=== PATIENT | female | born 1975 | race Caucasian/White ===

== ENCOUNTER → 2020-05-08 15:59 | Outpatient (CLI) | payer OTHER, SELFPAY ==
[2020-05-08 17:39] LABS: Absolute Lymphocyte Count 2.33 X10^3/uL (0.83-4.51); Absolute Neutrophil Count 4.6 X10^3/uL (2.0-7.7); Basophil# 0.04 X10^3/uL; Basophil% 0.5 % (0-1); Eosinophil# 0.08 X10^3/uL; Eosinophils% 1.1 % (0-5); Hemoglobin 12.8 g/dL (12.0-15.0); Lymphocyte # 2.33 X10^3/ul (4.0); Lymphocyte % 30.7 % (19-41); Mean Corp Hgb Conc 32.8 g/dL (32-36); Mean Corpuscular Hgb 30.3 pg (27.0-32.0); Mean Corpuscular Volume 92.2 fL (81-99); Mean Platelet Vol. 9.7 fl (6.2-12.0); Monocyte# 0.56 X10^3/uL; Monocyte% 7.4 % (0-10); NRBC Flagged by Analyzer 0 % (0-5); Neutrophil # 4.56 X10^3/uL (2.7-7.7); Platelet Count 276 K/mm3 (150-450); RBC Distribution Width CV 14.3 % (11.6-14.6); Red Blood Count 4.23 M/mm3 (4.2-5.4); White Blood Count 7.6 K/mm3 (4.4-11.0)
[2020-05-08 18:12] LABS: ALB/GLOB Ratio 1.1 RATIO (0.9-2.4); AST(SGOT) 15 U/L (15-37); Alanine Aminotransfer ALT/SGPT 28 U/L (13-56); Albumin, Serum 4.1 g/dL (3.2-5.0); Alkaline Phosphatase 58 U/L (45-117); Anion Gap 5 (5-15); BUN 11 mg/dL (7-18); BUN/Creat Ratio 11.6 RATIO (10-20); Calcium,Total 8.8 mg/dL (8.5-10.1); Chloride 106 mmol/L (98-107); Creatinine, Serum 0.95 mg/dL (0.55-1.02); EST Glomerular Filtration Rate 67 mL/min (>60); Est Glom Filt Rate - Afr Amer 81 mL/min (>60); Globulin 3.9 g/dL (2.2-4.2); Glucose 83 mg/dL (74-106); Sodium Level 137 mmol/L (136-145); T4 Free Direct 0.99 ng/dL (0.76-1.46); Thyroid Stim Hormone (TSH) 1.51 uIU/mL (0.358-3.74)
== END ==
PROVIDERS: PCP Family Medicine; Referring Provider Family Medicine; Visit Provider Family Medicine
DX: L65.9 Nonscarring hair loss, unspecified (principal)
CPT/HCPCS: 36415; 80053; 84439; 84443; 85025

== ENCOUNTER → 2020-05-23 10:11 | Outpatient (CLI) | payer SELFPAY ==
--- NOTE | 2020-05-23 10:40 | BI_ITS ---
MAMMOGRAPHY - BILATERAL SCREENING REASON FOR EXAM: Female, 45 years old. Routine annual screening examination. PERTINENT HISTORY: Non-contributory. TECHNIQUE: Digital bilateral breast zahra (3D mammographic acquisition) in the CC and MLO projections. 2-D mediolateral oblique (MLO) and craniocaudad (CC) views of both breasts were obtained. CAD: Full Field Digital Mammography with Computer Added Detection was performed. COMPARISON: None. Baseline examination. FINDINGS: Breast Composition: The breasts are heterogeneously dense, which may obscure small masses. There are no dominant masses or suspicious calcifications. No other significant abnormalities are identified. BI/SCRN MAMM (CAD)W/ZAHRA BILAT IMPRESSION: Negative screening mammogram. Yearly followup mammogram recommended. (A) ASSESSMENT CATEGORY: BIRADS Category 1: Negative. A letter regarding these results will be sent to the patient by the facility within 30 days. Approximately 10% of breast cancers are not detected by mammography. A normal mammogram should not delay biopsy of a clinically suspicious abnormality. [id number] Electronically Signed: Crow Izaguirre MD at 12:29 EST , Service support ,
== END ==
PROVIDERS: PCP Family Medicine; Referring Provider Family Medicine; Visit Provider Family Medicine
DX: Z12.31 Encounter for screening mammogram for malignant neoplasm of breast (principal)
CPT/HCPCS: 77063; 77067

== ENCOUNTER → 2020-06-06 | Outpatient (CLI) | payer OTHER, SELFPAY | END | disposition home or self-care (01) | PROVIDERS: PCP Family Medicine; Referring Provider Family Medicine; Visit Provider Family Medicine | DX: R69 Illness, unspecified (principal) ==

== ENCOUNTER 2021-06-29 10:40 | Outpatient (CLI) | payer SELFPAY, OTHER ==
--- NOTE | 2021-06-29 10:42 | BI_ITS ---
MAMMOGRAPHY - BILATERAL SCREENING REASON FOR EXAM: Female, 46 years old. Routine annual screening examination. PERTINENT HISTORY: Non-contributory. TECHNIQUE: Digital bilateral breast zahra (3D mammographic acquisition) in the CC and MLO projections. 2-D mediolateral oblique (MLO) and craniocaudad (CC) views of both breasts were obtained. CAD: Full Field Digital Mammography with Computer Added Detection was performed. COMPARISON: Comparison is made with prior study dated 05/23/2020. FINDINGS: Breast Composition: The breasts are heterogeneously dense, which may obscure small masses. There are no dominant masses or suspicious calcifications. No other significant abnormalities are identified. There has been no significant change since the prior study. BI/SCRN MAMM (CAD)W/ZAHRA BILAT IMPRESSION: Stable bilateral screening mammogram. Yearly follow-up mammogram recommended. (A) ASSESSMENT CATEGORY: BIRADS Category 1: Negative. A letter regarding these results will be sent to the patient by the facility within 30 days. Approximately 10% of breast cancers are not detected by mammography. A normal mammogram should not delay biopsy of a clinically suspicious abnormality. [id number] Electronically Signed: Crow Izaguirre MD at 11:56 EDT ,
== END 2021-06-29 23:59 | disposition home or self-care (01) ==
PROVIDERS: PCP Family Medicine; Visit Provider Family Medicine
DX: Z12.31 Encounter for screening mammogram for malignant neoplasm of breast (principal)
CPT/HCPCS: 77063; 77067

== ENCOUNTER → 2022-08-02 | Outpatient (CLI) | payer SELFPAY, OTHER ==
--- NOTE | 2022-08-02 09:21 | BI_ITS ---
MAMMOGRAPHY - BILATERAL SCREENING REASON FOR EXAM: Female, 47 years old. Routine annual screening examination. PERTINENT HISTORY: Non-contributory. TECHNIQUE: Digital bilateral breast zahra (3D mammographic acquisition) in the CC and MLO projections. 2-D mediolateral oblique (MLO) and craniocaudad (CC) views of both breasts were obtained. CAD: Full Field Digital Mammography with Computer Added Detection was performed. COMPARISON: Comparison is made with prior study dated June 29, 2021 and May 23, 2020. FINDINGS: Breast Composition: There are scattered areas of fibroglandular density. There are no dominant masses or suspicious calcifications. No other significant abnormalities are identified. There has been no significant change since the prior study. BI/SCRN MAMM (CAD)W/ZAHRA BILAT IMPRESSION: Stable bilateral screening mammogram. Yearly follow-up mammogram recommended. (A) ASSESSMENT CATEGORY: BIRADS Category 1: Negative. A letter regarding these results will be sent to the patient by the facility within 30 days. Approximately 10% of breast cancers are not detected by mammography. A normal mammogram should not delay biopsy of a clinically suspicious abnormality. [id number] Electronically Signed: Crow Izaguirre MD at 10:46 EDT ,
== END | disposition home or self-care (01) ==
PROVIDERS: PCP Family Medicine; Referring Provider Family Medicine; Visit Provider Family Medicine
DX: Z12.31 Encounter for screening mammogram for malignant neoplasm of breast (principal)
CPT/HCPCS: 77063; 77067

== ENCOUNTER → 2023-07-06 | Outpatient (CLI) | payer OTHER, SELFPAY ==
[2023-07-06 12:13] LABS: Absolute Lymphocyte Count 1.97 X10^3/uL (0.83-4.51); Absolute Neutrophil Count 3.3 X10^3/uL (2.0-7.7); Basophil# 0.03 X10^3/uL; Basophil% 0.5 % (0-1); Eosinophil# 0.08 X10^3/uL; Eosinophils% 1.4 % (0-5); Hematocrit 38.9 % (37-47); Hemoglobin 12.6 g/dL (12.0-15.0); Lymphocyte # 1.97 X10^3/ul (0.83-4.51); Lymphocyte % 33.8 % (19-41); Mean Corp Hgb Conc 32.4 g/dL (32-36); Mean Corpuscular Hgb 29.4 pg (27.0-32.0); Mean Corpuscular Volume 90.9 fL (81-99); Mean Platelet Vol. 10.5 fl (6.2-12.0); Monocyte# 0.46 X10^3/uL; Monocyte% 7.9 % (0-10); NRBC Flagged by Analyzer 0 % (0-5); Neutrophil # 3.27 X10^3/uL (2.7-7.7); Neutrophil % 56.2 % (47-70); Platelet Count 277 K/mm3 (150-450); RBC Distribution Width CV 14.7 % (11.6-14.6); RBC Distribution Width SD 49.2 fl (35.1-43.9); Red Blood Count 4.28 M/mm3 (4.2-5.4); White Blood Count 5.8 K/mm3 (4.4-11.0)
[2023-07-06 12:14] LABS: Color, Urine Yellow (Yellow); Glucose, Dipstick Normal (Normal); Ketone-Dipstick Negative (Negative); Leukocyte Esterase-Dipstick 500 /ul (Negative); Nitrite-Dipstick Negative (Negative); Occult Blood-Urine Negative /ul (Negative); Protein-Dipstick Negative (Negative); Specific Gravity, Urine 1.015 (1.002-1.030); Urine Bilirubin Dipstick Negative (Negative); Urine Clarity Clear (Clear); Urine Urobilinogen Normal (Normal)
[2023-07-06 13:02] LABS: AST(SGOT) 14 U/L (15-37); Alanine Aminotransfer ALT/SGPT 17 U/L (13-56); Albumin, Serum 3.7 g/dL (3.2-5.0); Alkaline Phosphatase 61 U/L (45-117); Anion Gap 5 (5-15); BUN 11 mg/dL (7-18); BUN/Creat Ratio 11.8 RATIO (10-20); Calcium,Total 8.8 mg/dL (8.5-10.1); Chloride 107 mmol/L (98-107); Cholesterol 212 mg/dL (200); Creatinine, Serum 0.93 mg/dL (0.55-1.02); EST Glomerular Filtration Rate 68 mL/min (>60); Est Glom Filt Rate - Afr Amer 82 mL/min (>60); Globulin 3.7 g/dL (2.2-4.2); Glucose 88 mg/dL (74-106); High Density Lipoprotein 78 mg/dL; Potassium 4.3 mmol/L (3.5-5.1); Protein, Total 7.4 g/dL (6.4-8.2); Sodium Level 140 mmol/L (136-145); Thyroid Stim Hormone (TSH) 1.09 uIU/mL (0.358-3.74); Triglycerides 82 mg/dL; Very Low Density Lipoprotein 16 mg/dL (5-40)
== END | disposition home or self-care (01) ==
PROVIDERS: PCP Family Medicine; Referring Provider Family Medicine; Visit Provider Family Medicine
DX: Z00.00 Encounter for general adult medical examination without abnormal findings (principal)
CPT/HCPCS: 80053; 80061; 81002; 84443; 85025

== ENCOUNTER 2023-07-29 08:18 | Day surgery (SDC) | payer SELFPAY, OTHER ==
[2023-07-29] VITALS (8 sets, daily range): BP systolic 97–111; BP diastolic 65–70; PULSE 56–67; RESP 16; TEMP 36.5–36.7; O2SAT 99–100; BMI 29.0
[2023-07-29 08:45] LABS: Internal QC Validated? YES +Cl - CLEAR BKGD; Pregnancy, Urine Negative Negative
[2023-07-29] MEDS: Lactated Ringers 1,000 ML 15 ML IV (08:57)
--- NOTE | 2023-07-29 09:44 | HP.PCM_ITS ---
HPI - General HPI Narrative KARINA HOLT, is a 48 F who presents for screening colonoscopy. The patient has never had a colonoscopy in the past. She does report a history of polyps in her mother. She has no blood in the stool or abdominal pain. [facility] Medical History (Updated 07/26/23 @ 12:48 by Forest Brooks) Wears glasses Home Medications ascorbate calcium (vitamin C) 500 mg tablet 500 mg PO DAILY 07/20/23 [History Last Taken Unknown] calcium carbonate (Calcium 600) 600 mg PO DAILY 07/20/23 [History Last Taken Unknown] melatonin 3 mg tablet,extended release 3 mg PO QHS 07/20/23 [History Last Taken Unknown] omega-3 fatty acids-fish oil 360 mg-1,200 mg capsule (Fish Oil) 1 cap PO DAILY 07/20/23 [History Last Taken 07/25/23] psyllium husk 0.4 gram capsule (Daily Fiber) 0.4 g PO DAILY 07/20/23 [History Last Taken 07/24/23] turmeric (bulk) 95 % powder (Curcumin) 1 ea miscellaneous BID 07/26/23 [History Last Taken Unknown] Allergy/AdvReac Type Severity Reaction Status Date / Time No Known Allergies Allergy Verified 07/26/23 12:41 Family History (Updated 07/20/23 @ 09:06 by Kristal Moralez) Mother Adenomatous colon polyp Hypertension History of partial colectomy Surgical History Hx of section Hx of tonsillectomy Hx of wisdom tooth extraction Social History (Updated 07/20/23 @ 09:08 by Kristal Moralez) household members: spouse 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 Smoking Status: Never smoker details: Rare wine substance use type: does not use michael/spiritism: [facility] Past Medical/Surgical History Planned Operation Planned Operative Procedure/s: COLONOSCOPY Previous Hospitalizations/Surgeries HX Hospitalizations: No Any Problems With Anesthesia: No You/Your Family Experience Fever (Hyperthermia) With Anes: No Cholinesterase deficiency: No Cardiovascular Hx Hypertension: No Respiratory Hx Sleep Apnea: No Hx Respiratory Tract Infection/Cold (presently): No Do You Snore Loudly (louder than talking or can be heard): No Do You Often Feel Tired/ Fatigued/ Sleepy Dring Daytime?: No Has Anyone Observed You Stop Breathing During Sleep?: No Result (for STOP score): Negative Smoking Status: Never smoker Neurological Does patient have nerve stimulator: No Miscellaneous Recent Exposure to Contagious Disease: No Allergies No Known Allergies Allergy (Verified 07/26/23 12:41) Discharge After D/C, Where Do you Plan to Go: Return Home Vital Signs Vital Signs Vital Signs: 07/29/23 08:40 07/29/23 08:40 Temperature 98.0 F Temperature Source Temporal Pulse Rate 62 Respiratory Rate 16 Respiratory Pattern Normal Blood Pressure 111/69 Blood Pressure Mean 83 Blood Pressure Source Monitor Blood Pressure Position Semi-Fowlers Blood Pressure Location Left Arm Pulse Ox 100 Oxygen Delivery Method Room Air Weight Weight: 156 lb 8.451 oz Body Mass Index (BMI) 29.0 Physical Exam Const alert and oriented x3 HEENT normocephalic Eyes PERRL Resp normal respiratory effort and normal air movement Cardio regular rate and regular rhythm GI soft to palpation, non-tender and non-distended Extremity normal to inspection Assessment & Plan Assessment/Plan (1) Encounter for screening for malignant neoplasm of colon: PLAN: I explained endoscopy in detail to the patient. I explained the risks including but not limited to stroke or heart attack with anesthesia, perforation of the GI tract, bleeding, infection. I explained that any of these could necessitate further emergency surgery. The patient understands and all questions were answered sufficiently. The patient wishes to proceed with procedure. Foreign Reardon MD Pager: [facility] [address] [place] [address], [address] [place] [address] Office: Surgery Risks - Colonoscopy Risks Include but are not Limited To: Risks include but are not limited to: Bleeding, perforation requiring further surgery, inability to complete colonoscopy requiring barium enema.
--- NOTE | 2023-07-29 10:16 | OP.CCLET_ITS ---
07/29/2023 Elías Cabrera [address] [place] [address] Re : Colonoscopy procedure for Neelam Bensonber Dear Dr. Cabrera This procedure was performed on Saturday, July 29, 2023. My impressions and recommendations are as follows: Impressions : - The entire examined colon is normal on direct and retroflexion views. - No specimens collected. Recommendations : - Discharge patient to home. - Resume previous diet. - Continue present medications. - Repeat colonoscopy in 10 years for screening purposes. My findings are described in the full procedure note, which is enclosed. If I can be of further assistance, please feel free to contact me at Doctor phone number(s): , Work: . Sincerely, Foreign Reardon MD 07/29/2023 10:16:04 AM This report has been signed electronically.
--- NOTE | 2023-07-29 10:16 | OP.COLON_ITS ---
Patient Name: Neelam Masters Procedure Date: 07/29/2023 9:52 AM Date of : 1975 Age: 48 Procedure: Colonoscopy Indications: Screening for colorectal malignant neoplasm Providers: Foreign Reardon MD Referring MD: Elías Cabrera Medicines: Propofol per Anesthesia Patient Profile: This is a 48 year old female. Refer to note in patient chart for documentation of history and physical. Last Colonoscopy: none. The patient's first colonoscopy is today. Complications: No immediate complications. Procedure: Pre-Anesthesia Assessment: - Prior to the procedure, a History and Physical was performed, and patient medications and allergies were reviewed. The patient's tolerance of previous anesthesia was also reviewed. The risks and benefits of the procedure and the sedation options and risks were discussed with the patient. All questions were answered, and informed consent was obtained. Prior Anticoagulants: The patient has taken no anticoagulant or antiplatelet agents. After reviewing the risks and benefits, the patient was deemed in satisfactory condition to undergo the procedure. After I obtained informed consent, the scope was passed under direct vision. Throughout the procedure, the patient's blood pressure, pulse, and oxygen saturations were monitored continuously. The pediatric colonoscope was introduced through the anus and advanced to the cecum, identified by appendiceal orifice and ileocecal valve. The colonoscopy was performed without difficulty. The patient tolerated the procedure well. The quality of the bowel preparation was good. The ileocecal valve, appendiceal orifice, and rectum were photographed. Scope In: 10:03:30 AM Scope Withdrawal Time 0 hours 4 minutes 6 seconds Scope Out: 10:11:52 AM Total Procedure Duration Time 0 hours 8 minutes 22 seconds Findings: The entire examined colon appeared normal on direct and retroflexion views. Impression: - The entire examined colon is normal on direct and retroflexion views. - No specimens collected. Recommendation: - Discharge patient to home. - Resume previous diet. - Continue present medications. - Repeat colonoscopy in 10 years for screening purposes. Procedure Code(s): --- Professional --- 26056, Colonoscopy, flexible; diagnostic, including collection of specimen(s) by brushing or washing, when performed (separate procedure) Diagnosis Code(s): --- Professional --- Z12.11, Encounter for screening for malignant neoplasm of colon CPT copyright 2022 [employer]. All rights reserved. The codes documented in this report are preliminary and upon food porter review may be revised to meet current compliance requirements. Foreign Reardon MD 07/29/2023 10:16:04 AM This report has been signed electronically. Number of Addenda: 0 Note Initiated On: 07/29/2023 9:52 AM
== END 2023-07-29 11:32 | disposition home or self-care (01) ==
LOC: EN 08:19 → AC 08:20
PROVIDERS: Anesthesiology; PCP Family Medicine; Referring Provider Family Medicine; Visit Provider Surgery
PROC: 0DJD8ZZ Inspection of Lower Intestinal Tract, Via Natural or Artificial Opening Endoscopic (ICD-10-PCS; CPT 45378; principal; 2023-07-29 09:40)
DX: Z12.11 Encounter for screening for malignant neoplasm of colon (principal); Z83.710 Family history of adenomatous and serrated polyps
CPT/HCPCS: 45378; 81025; J7120; J2405

== ENCOUNTER → 2023-08-11 | Outpatient (CLI) | payer SELFPAY, OTHER ==
--- NOTE | 2023-08-11 08:51 | BI_ITS ---
MAMMOGRAPHY - BILATERAL SCREENING REASON FOR EXAM: Female, 48 years old. Routine annual screening examination. PERTINENT HISTORY: Non-contributory. TECHNIQUE: Digital bilateral breast zahra (3D mammographic acquisition) in the CC and MLO projections. 2-D mediolateral oblique (MLO) and craniocaudad (CC) views of both breasts were obtained. CAD: Full Field Digital Mammography with Computer Added Detection was performed. COMPARISON: Comparison is made with prior study dated August 02, 2022 and June 29, 2021. FINDINGS: Breast Composition: The breasts are heterogeneously dense, which may obscure small masses. There are no dominant masses or suspicious calcifications. No other significant abnormalities are identified. There has been no significant change since the prior study. BI/SCRN MAMM (CAD)W/ZAHRA BILAT IMPRESSION: Stable bilateral screening mammogram. Yearly follow-up mammogram recommended. (A) ASSESSMENT CATEGORY: BIRADS Category 1: Negative. A letter regarding these results will be sent to the patient by the facility within 30 days. Approximately 10% of breast cancers are not detected by mammography. A normal mammogram should not delay biopsy of a clinically suspicious abnormality. [id number] Electronically Signed: Crow Izaguirre MD at 10:17 EDT ,
== END | disposition home or self-care (01) ==
PROVIDERS: PCP Family Medicine; Referring Provider Family Medicine; Visit Provider Family Medicine
DX: Z12.31 Encounter for screening mammogram for malignant neoplasm of breast (principal)
CPT/HCPCS: 77063; 77067

== ENCOUNTER → 2024-08-29 | Outpatient (CLI) | payer SELFPAY ==
--- NOTE | 2024-08-29 07:25 | BI_ITS ---
EXAM: SCRN MAMM (CAD)W/ZAHRA BILAT 08/29/2024 CLINICAL HISTORY: F, Age 49 y/o , SCREENING TECHNIQUE: Bilateral screening digital breast tomosynthesis with 2D and 3D images. Computer aided detection. COMPARISON: Prior exam(s) dated 08/11/2023, 08/02/2022. FINDINGS: TISSUE DENSITY: The breast tissue is composed of scattered area of fibroglandular density. Bilateral Breast Mammographic Findings: No significant masses, calcifications or other abnormalities are identified. BI/SCRN MAMM (CAD)W/ZAHRA BILAT IMPRESSION: Right Breast: BIRADS 1 NEGATIVE. Left Breast: BIRADS 1 NEGATIVE. OVERALL FINAL ASSESSMENT: BIRADS 1 NEGATIVE. RECOMMENDATION: Routine annual follow-up in 1 Year A letter with findings and recommendations will be mailed to the patient. Reading Location: [id number]
== END | disposition home or self-care (01) ==
PROVIDERS: PCP Family Medicine; Referring Provider Family Medicine; Visit Provider Family Medicine
DX: Z12.31 Encounter for screening mammogram for malignant neoplasm of breast (principal)
CPT/HCPCS: 77063; 77067

== ENCOUNTER → 2024-08-29 | Outpatient (CLI) | payer OTHER, SELFPAY ==
[2024-09-03 09:08] LABS: HPV APTIMA, High Risk Negative (Negative)
[2024-09-04 09:51] LABS: HPV Reflexed? YES, CHARGE PATIENT
== END | disposition home or self-care (01) ==
LOC: LABSPEC 12:12
PROVIDERS: PCP Family Medicine; Referring Provider Family Medicine; Visit Provider Family Medicine
DX: Z12.72 Encounter for screening for malignant neoplasm of vagina (principal)
CPT/HCPCS: 87624; 88175; G0145

== ENCOUNTER 2024-09-29 18:09 | Emergency (ER) | payer OTHER, SELFPAY ==
[2024-09-29 18:10] VITALS: BP 132/74; PULSE 79; RESP 16; TEMP 36.7; O2SAT 100; BMI 32.1
--- NOTE | 2024-09-29 18:43 | ED.VIS.LOWEX ---
HPI History of Present Illness Chief Complaint: Laceration Informant: patient and spouse/S.O. Narrative Narrative: History of varicose veins bleeding left lower leg while shaving. This occurred for 32 hours prior to arrival. No anticoagulants. Patient placed tight dressing on it and came to the emergency department. Has not seen specialist for her varicose veins. No other areas of concern. Prior similar symptoms: No PFSH PFSH Medical History Wears glasses Home Medications ?Medication ?Instructions ?Recorded ?Last Taken ?Type ascorbate calcium (vitamin C) 500 500 mg PO DAILY 07/20/23 Unknown History mg tablet calcium carbonate (Calcium 600) 600 mg PO DAILY 07/20/23 Unknown History melatonin 3 mg tablet,extended 3 mg PO QHS 07/20/23 Unknown History release omega-3 fatty acids-fish oil 360 1 cap PO DAILY 07/20/23 07/25/23 History mg-1,200 mg capsule (Fish Oil) psyllium husk 0.4 gram capsule 0.4 g PO DAILY 07/20/23 07/24/23 History (Daily Fiber) turmeric (bulk) 95 % powder 1 ea miscellaneous BID 07/26/23 Unknown History (Curcumin) Allergy/AdvReac Type Severity Reaction Status Date / Time No Known Allergies Allergy Verified 09/29/24 18:10 Family History Mother Adenomatous colon polyp Hypertension History of partial colectomy Surgical History Hx of section Hx of wisdom tooth extraction Hx of tonsillectomy Social History household members: spouse 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 Smoking Status: Never smoker details: Rare wine substance use type: does not use michael/taoism: Roger ROS ROS ED Constitutional Constitutional ED: Denies fever(s) Cardiovascular Cardiovascular: Denies chest pain Respiratory/Chest Respiratory/Chest: Denies cough Gastrointestinal Gastrointestinal: Denies diarrhea or vomiting Musculoskeletal Musculoskeletal: Denies none Integumentary Reports wounds and other Details: Bleeding from varicose vein left leg ; Denies rash Neurologic Neurologic: Denies weakness EXAM Physical Exam Const Vital Signs: 09/29/24 18:10 06/21/25 19:13 Temperature 98.0 F 98 F Temperature Source Temporal Pulse Rate 79 72 Respiratory Rate 16 18 Blood Pressure 132/74 H 127/81 H Blood Pressure Mean 93 96 Pulse Ox 100 99 Oxygen Delivery Method Room Air Positive well nourished and well developed General Appearance ED: well developed HEENT normocephalic and atraumatic Eyes General Eye ED: Yes normal appearance of both eyes Neck full ROM Resp normal respiratory effort and normal air movement Cardio regular rate and regular rhythm GI soft to palpation Extremity full ROM Extremity Narrative: Left lower extremity: Rag tied to the distal left lower leg blood on the medial aspect of the leg. This was removed there was pinpoint clot area over the varicose vein there is no active bleeding. Neuro oriented x3 Skin no rashes or lesions noted and no wounds MDM MDM MDM Narrative Medical decision making narrative: Interventions / MDM: Differential diagnosis: Varicose vein, bleeding Diagnosis considered but do not suspect: N/A My EKG interpretation: N/A Imaging independently reviewed and interpreted by myself: N/A External documents reviewed: N/A Test considered but not ordered:N/A ED course: No active bleeding from injury to varicose vein. Xeroform pressure dressing placed. Discussed leaving dressing for 24 hours, discussed wound care. She will be referred to vascular surgery with history of varicose veins. Return precautions. All questions were answered. Re-evaluation: stable Disposition discussed with patient/family/significant other: Patient significant other Case discussed with consulting clinician: N/A This note was generated with Nativo dictation software. It may contain incorrect words, spelling, and punctuation that were not noted in checking the note before signing. Discharge Plan Triage Chief Complaint: Laceration ED Provider: Yusuf Mcintyre Dx/Rx/DC Orders Clinical Impression: Varicose veins of both lower extremities, Bleeding from varicose vein Instructions: ED Varicose Veins Prescriptions: No Action omega-3 fatty acids-fish oil [Fish Oil] 360-1,200 mg capsule 1 cap PO DAILY melatonin 3 mg tablet extended release 3 mg PO QHS psyllium husk [Daily Fiber] 0.4 gram capsule 0.4 g PO DAILY calcium carbonate [Calcium 600] 600 mg calcium (1,500 mg) tablet 600 mg PO DAILY ascorbate calcium (vitamin C) 500 mg tablet 500 mg PO DAILY Curcumin 95 % powder 1 ea miscellaneous BID Primary Care Provider: Elías Cabrera Referrals: Juan Carlos Bearden MD [Med Staff - Active Staff] - 1-2 Weeks Elías Cabrera MD [Primary Care Provider] - Activity Restrictions/Additional Instructions: No active bleeding from your varicose veins after shaving. Leave dressing on for 24 hours, daily dressing changes after cleaning with warm soap and water. Follow-up with Dr. Bearden. Print Language: Tamazight Disposition Disposition: Home, Self Care Discharge Date/Time: 09/29/24 19:14
--- OUTSIDE RECORDS SUMMARY | 2024-09-29 19:01 | XMS RPT_ITS | CCD ---
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 Elías Cabrera Primary Care Provider Kristal Moralez Attending Provider Unavailable Dr. Elías Cabrera Referring Provider Dr. Foreign Reardon Attending Provider [phone] Dr. Foreign Reardon Other Provider [phone] Dr. Elías Cabrera MD Primary Care Provider [phone] Rick WANG, Dr. Elías Monteiro Attending Provider Dr. Elías Cabrera MD Referring Provider [phone] Elías Cabrera Referring Unavailable Elías Cabrera Primary Care Unavailable Elías Cabrera Attending Unavailable Elías Cabrera Referring Unavailable Elías Cabrera Primary Care Unavailable Elías Cabrera Attending Unavailable Medications Current Medications Medication Drug Class(es) Dates Sig (Normalized) Sig (Original) calcium ascorbate 500 mg oral tablet (4 sources) Start: 07-20-2023 take 1 tablet by mouth once daily Ascorbate Calcium (Vitamin C) 500 mg tablet Active 500 mg PO DAILY July 20, 2023 12:00am calcium carbonate 1500 mg oral tablet (4 sources) Start: 07-20-2023 take 1 tablet by mouth once daily Calcium Carbonate (Calcium 600) 600 mg calcium (1,500 mg) tablet Active 600 mg PO DAILY July 20, 2023 12:00am docosahexaenoic acid 144 mg / eicosapentaenoic acid 216 mg / vitamin e 2 unt oral capsule (4 sources) Start: 07-20-2023 [place]-3 Fatty Acids-Fish Oil (Fish Oil) 360-1,200 mg capsule Active 1 NMA PO DAILY July 20, 2023 12:00am melatonin 3 mg extended release oral tablet (4 sources) Start: 07-20-2023 take 1 tablet by mouth at bedtime Melatonin 3 mg tablet extended release Active 3 mg PO AT BEDTIME July 20, 2023 12:00am psyllium 400 mg oral capsule (4 sources) Start: 07-20-2023 Psyllium Husk (Daily Fiber) 0.4 gram capsule Active 0.4 g PO DAILY July 20, 2023 12:00am Turmeric extract (4 sources) Start: 07-26-2023 Turmeric (Bulk) (Curcumin) 95 % powder Active 1 NMA MC TWICE A DAY July 26, 2023 12:00am Start: 07-26-2023 Turmeric (Bulk ) (Curcumin) 95 % powder Active 1 EACH MC TWICE A DAY July 26, 2023 12:00am Completed/Discontinued Medications Medication Drug Class(es) Dates Sig (Normalized) Sig (Original) vitamin b12 1 mg oral capsule (4 sources) Vitamin B12 Start: 07-20-2023 End: 07-26-2023 take 1 capsule by mouth once daily Cyanocobalamin (Vitamin B-12) 1,000 mcg capsule Discontinued 1000 ug PO DAILY July 20, 2023 12:00am July 26, 2023 12:42pm Problems Problem Classification Problem Date Documented Da te Episodic/Chronic Other screening for suspected conditions (not mental disorders or infectious disease) (8 sources) Patient encounter status; Translations: [Encounter for screening for malignant neoplasm of colon] Onset: 09-05-2024 07-20-2023 Episodic Results Test Name Value Interpretation Reference Range Facility PAP IG HPV HR APTIMAon 09-03 ADEQ Comment Normal . [facility] Comment on above: Order Comment: Speci men Comment: No. of containers..01 ThinPrep Vial Result Comment: Sati sfactory for evaluation. No endocervical component is identified. Performed By: #### L 7400.0377 #### [facility] [address] [place], [place], [id number] COMM . Normal . [facility] Comment on above: Order Comment: Speci men Comment: No. of containers..01 ThinPrep Vial Performed By: #### L 7400.0377 #### [facility] [address] [place], [place], [id number] COMMENT Comment Normal . [facility] Comment on above: Order Comment: Speci men Comment: No. of containers..01 ThinPrep Vial Result Comment: This liquid based ThinPrep(R) pap test was screened with the use of an image guided system. Performed By: #### L 7400.0377 #### [facility] [address] [place], [place], [id number] DIAG Comment Normal . [facility] Comment on above: Order Comment: Speci men Comment: No. of containers..01 ThinPrep Vial Result Comment: NEGA TIVE FOR INTRAEPITHELIAL LESION OR MALIGNANCY. Performed By: #### L 7400.0377 #### [facility] [address] [place], [place], [id number] HPV APTIMA, HR Negative Normal Negative [facility] Comment on above: Order Comment: Speci men Comment: No. of containers..01 ThinPrep Vial Result Comment: This nucleic acid amplification test detects fourteen high- risk HPV types (16,18,31,33,35,39,45,51,52,56,58,59,66,68) without differentiation. Performed at: - [address] [id number] Valet Service Attendant: Iqra Garcia MD, Phone: [phone] Performed at: = - [address] [id number] Valet Service Attendant: Iqra Garcia MD, Phone: [phone] Performed By: #### L 7400.0377 #### [facility] [address] [place], [place], [id number] PAPSMR Comment Normal . [facility] Comment on above: Order Comment: Speci men Comment: No. of containers..01 ThinPrep Vial Result Comment: The Pap smear is a screening test designed to aid in the detection of premalignant and malignant conditions of the uterine cervix. It is not a diagnostic procedure and should not be used as the sole means of detecting cervical cancer. Both false-positive and false-negative reports do occur. Performed By: #### L 7400.0377 #### [facility] [address] [place], [place], [address] PERFORM Comment Normal . [facility] Comment on above: Order Comment: Speci men Comment: No. of containers..01 ThinPrep Vial Result Comment: Heike Salazar, Automotive Heavy Mechanic (ASCP) Performed By: #### L [id number] #### [facility] [address] [place], [place], [address] Breast imaging reportOrdered By: Milagros Thorpe on 08-29-2024 Study report [facility] Imaging Services [address] [place], [place] [address] SCRN MAMM (CAD)W/ZAHRA BILAT MR#: [id number] Acct: [id number] Name: KARINA HOLT Rep #: [id number] : 1975 F 49 From: Chery Thorpe MD PCP: Dr. Elías Cabrera MD Status: RE G CLI Study:SCRN MAMM (CAD)W/ZAHRA BILAT Date of Exa m: 08/29/24 Exam# [id number] Ordering Dr: Elías Cabrera MD EXAM: SCRN MAMM (CAD)W/ZAHRA BILAT 08/29/2024 CLINICAL HISTORY: F, Age 49 y/o , SCREENING TECHNIQUE: Bilateral screening digital breast tomosynthesis with 2D and 3D images. Computeraided detection. COMPARISON: Prior exam(s) dated 08/11/2023, 08/02/2022. FINDINGS: TISSUE DENSITY: The breast tissue is composed of scattered area of fibroglandular density. Bilateral Breast Mammographic Findings: No significant masses, calcifications or other abnormalities are identified. BI/SCRN MAMM (CAD)W/ZAHAR BILAT IMPRESSION: Right Breast: BIRADS 1 NEGATIVE. Left Breast: BIRADS 1 NEGATIVE. OVERALL FINAL ASSESSMENT: BIRADS 1 NEGATIVE. RECOMMENDATION: Routine annual follow-up in 1 Year A letter with findings and recommendations will be mailed to the patient. Reading Location: [id number] CC: Dr. Elías Cabrera MD ~ Communication And Outreach Manager: Signed [facility] Cervical or vagninal specime n microscopic examination by cytology stain (reported asOrdered By: Elías Cabrera on 08-29-2024 Cytology report Cyto stain Doc (Cvx/Vag) Comment . [facility] Comment on above: The Pap smear is a s creening test designed to aid in thedetection of premalignant and malignant conditions of theuterine cervix. It is not a diagnostic procedure andshould not be used as the sole means of detecting cervicalcancer. Both false-positive and false-negative reports dooccur. Detection in cervical specim en of any of human papilloma virus (HPV) 16, 18, 31, 33,Ordered By: Elías Cabrera on 08-29-2024 HPV 16+18+31+33+35+39+45+51+5 2+56+58+59+66+68 DNA Probe+sig amp Ql (Cvx) Negative Negative [facility] Comment on above: This nucleic acid am plification test detects fourteen high-risk HPV types (16,18,31,33,35,39,45,51,52,56,58,59,66,68)without differentiation.Performed at: [address] [id number] Director: Iqra Garcia MD, Phone: [phone] at: =[facility] [id number] Director: Iqra Garcia MD, Phone: [phone] Laboratory - CytologyOrdered By: Elías Cabrera on 08-29-2024 Automotive Heavy Mechanic Cyto stain Nom (Cvx/Vag) [ID] Comment . [facility] Comment on above: Macy root, Automotive Heavy Mechanic (ASCP) Laboratory - Miscellaneous t estsOrdered By: Elías Cabrera on 08-29-2024 Service comment (Unsp spec) [Interp] . . [facility] No Panel InformationOrdered By: Elías Cabrera on 08-29-2024 Pap Smear Specimen Adequacy Comment . [facility] Comment on above: Satisfactory for radha luation. No endocervical component is identified. SCRN MAMM (CAD)W/ZAHRA BILATo n 08-29-2024 SCRN MAMM (CAD)W/ZAHRA BILAT [facility] Imaging Services [address] [place] [address] SCRN MAMM (CAD)W/ZAHRA BILAT MR#: [id number] Acct: [id number] Name: KARINA HOLT Rep #: [id number] : 1975 F 49 From: Milagros Thorpe MD PCP: Dr. Elías Cabrera MD Status: REG CLI Study: SCRN MAMM (CAD)W/ZAHRA BILAT Date of Exam: 08/10 05/05 Exam# [id number] Ordering Dr: Elías Cabrera MD EXAM: SCRN MAMM (CAD)W/ZAHRA BILAT 08/29/2024 CLINICAL HISTORY: F, Age 49 y/o , SCREENING TECHNIQUE: Bilateral screening digital breast tomosynthesis with 2D and 3D images. Computer aided detection. COMPARISON: Prior exam(s) dated 08/11/2023, 08/02/2022. FINDINGS: TISSUE DENSITY: The breast tissue is composed of scattered area of fibroglandular density. Bilateral Breast Mammographic Findings: No significant masses, calcifications or other abnormalities are identified. BI/SCRN MAMM (CAD)W/ZAHRA BILAT IMPRESSION: Right Breast: BIRADS 1 NEGATIVE. Left Breast: BIRADS 1 NEGATIVE. OVERALL FINAL ASSESSMENT: BIRADS 1 NEGATIVE. RECOMMENDATION: Routine annual follow-up in 1 Year A letter with findings and recommendations will be mailed to the patient. Reading Location: [facility] CC: Dr. Elías Cabrera MD Communication And Outreach Manager: Signed Normal [facility] Laboratory - Chemistry and C hemistry - challengeOrdered By: Juan Carlos Davis on 07-29-2023 HCG ( test) Ql (U) Negative [facility] Comment on above: Very dilute urine sp ecimens, as indicated by a low specificgravity, may not contain business representative levels of hCG. If is still suspected, a first morning urinespecimen should be collected 48 hours later and tested. Absolute lymphocyte countOrd ered By: Elías Shultzbenito on 07-06-2023 Lymphocytes Auto (Unsp spec) [#/Vol] 1.97 10*3/uL 0.83-4.51 [facility] Automated lymphocyte count a s percentage of total leukocytesOrdered By: Elías Cabrera on 07-06-2023 Lymphocytes/100 WBC Auto (Unsp spec) 33.8 % 19-41 [facility] Basophil percentageOrdered B y: Elías Cabrera on 07-06-2023 Basophils/100 WBC (Bld) 0.5 % 0-1 [facility] Bilirubin [Mass/Vol] 1.10 mg/dL 0.20-1.[address] [facility] Comment on above: For patients on eltr ombopag therapy, use of Dimension [place] TBIL is not recommended. Chloride [Moles/Vol] 107 mmol/L 98-[address] [facility] Cholesterol [Mass/Vol] 212 mg/dL <200 [facility] Comment on above: <200 mg/dL Desirable 200-240 mg/dL Borderline >240 mg/dL High Risk Eosinophils/100 WBC (Bld) 1.4 % 0-5 [facility] Glucose [Mass/Vol] 88 mg/dL 74-106 [facility] Hemoglobin (Bld) [Mass/Vol] 12.6 g/dL 12.0-15.0 [facility] Monocytes/100 WBC (Bld) 7.9 % 0-10 [facility] Neutrophils (Bld) [#/Vol] 3.3 10*3/uL 2.0-7.7 [facility] Neutrophils/100 WBC (Bld) 56.2 % 47-70 [facility] Potassium [Moles/Vol] 4.3 mmol/L 3.5-5.1 [facility] Protein [Mass/Vol] 7.4 g/dL 6.4-8.2 [facility] Sodium [Moles/Vol] 140 mmol/L 136-145 [facility] Triglyceride [Mass/Vol] 82 mg/dL <199 [facility] Comment on above: The drugs N-Acetylcy steine and Metamizole may falsely depress this assay.Serum Triglycerides Reference Interval Normal <150 mg/dL Borderline high 150 - 199 mg/dL High 200 - 499 mg/dL Very High > or = 500 mg/dL WBC (Bld) [#/Vol] 5.8 10*3/uL 4.4-11.0 [facility] Bilirubin Test strip Ql (U)O rdered By: Elías Cabrera on 07-06-2023 Bilirubin Ql (U) Negative Negative [facility] Determination of erythrocyte mean corpuscular volume (MCV)Ordered By: Elías Cabrera on 07-06-2023 MCV (RBC) [Entitic vol] 90.9 fL 81-99 [facility] Erythrocyte distribution wid th ratioOrdered By: Elías Cabrera on 07-06-2023 Erythrocyte distribution width (RBC) [Ratio] 14.7 % 11.6-14.6 [facility] Erythrocyte distribution wid th standard deviationOrdered By: Elías Cabrera on 07-06-2023 Erythrocyte distribution width (RBC) [Entitic vol] 49.2 fL 35.1-43.9 [facility] Hematocrit Auto (Bld) [Volum e fraction]Ordered By: Elías Cabrera on 07-06-2023 Hematocrit (Bld) [Volume fraction] 38.9 % 37-47 [facility] Immature granulocytes/100 WB C Auto (Bld)Ordered By: Eílas Cabrera on 07-06-2023 Immature granulocytes/100 WBC (Bld) 0.200 % 0.0-0.9 [facility] Comment on above: IG% - Immature Granu locytes (promyelocytes, myelocytes and metamyelocytes) > 1% indicates that a LEFT SHIFT is Present. Ketones Test strip Ql (U)Ord ered By: Elías Cabrera on 07-06-2023 Ketones Ql (U) Negative Negative [facility] - Chemistry and C hemistry - challengeOrdered By: Elías Cabrera on 07-06-2023 Albumin/Globulin [Mass ratio] 1.0 {ratio} 0.9-2.4 [facility] ALP [Catalytic activity/Vol] 61 U/L 45-117 [facility] ALT [Catalytic activity/Vol] 17 U/L 13-56 [facility] Cholesterol in HDL [Mass/Vol] 78 mg/dL >40 [facility] Comment on above: The drugs N-Acetylcy steine and Metamizole may falsely depress this assay. Reference Range HDL <40 mg/dL Low HDL Cholesterol HDL >or= 60 mg/dL High HDL Cholesterol Cholesterol in LDL [Mass/Vol] 118 mg/dL 0-130 [facility] CO2 [Moles/Vol] 28.0 mmol/L 21.0-32.0 [facility] Globulin (S) [Mass/Vol] 3.7 g/dL 2.2-4.2 [facility] Urea nitrogen/Creatinine [Mass ratio] 11.8 mg/mg 10-20 [facility] - Hematology and Cell countsOrdered By: Elías Cabrera on 07-06-2023 MCH (RBC) [Entitic mass] 29.4 pg 27.0-32.0 [facility] MCHC (RBC) [Mass/Vol] 32.4 g/dL 32-36 [facility] Nucleated RBC/100 WBC (Bld) [Ratio] 0 % 0-5 [facility] Platelet mean volume (Bld) [Entitic vol] 10.5 fL 6.2-12.0 [facility] Platelets (Bld) [#/Vol] 277 10*3/uL 150-450 [facility] Nitrite Test strip Ql (U)Ord ered By: Elías Cabrera on 07-06-2023 Nitrite Ql (U) Negative Negative [facility] No Panel InformationOrdered By: Elías Cabrera on 07-06-2023 Estimated GFR (MDRD) Amer 82 mL/min >60 [facility] Comment on above: GFR Calc Estimated GFR (MDRD) Non-Af Amer 68 mL/min >60 [facility] Comment on above: Non- GFR Calc VLDL Cholesterol 16 mg/dL 5-40 [facility] Protein Test strip Ql (U)Ord ered By: Elías Cabrera on 07-06-2023 Protein Ql (U) Negative Negative [facility] RBC Auto (Bld) [#/Vol]Ordere d By: Elías Cabrera on 07-06-2023 RBC (Bld) [#/Vol] 4.28 10*6/uL 4.2-5.4 [facility] Serum or plasma calcium nicolas urement (mass/volume)Ordered By: Elías Cabrera on 07-06-2023 Calcium [Mass/Vol] 8.8 mg/dL 8.5-10.1 [facility] Serum or plasma creatinine m easurement (mass/volume)Ordered By: Elías Cabrera on 07-06-2023 Creatinine [Mass/Vol] 0.93 mg/dL 0.55-1.02 [facility] Comment on above: The validity of the calculated GFR & GFRAA in patients over 70 years has not been determined. Clinical correlation is essential. Serum or plasma thyroid stim ulating hormone (TSH) measurement (units/volume)Ordered By: Elías Cabrera on 07-06-2023 TSH Qn 1.09 uIU/mL 0.358-3.74 [facility] Serum or plasma urea nitroge n measurement (mass/volume)Ordered By: Elías Cabrera on 07-06-2023 Urea nitrogen [Mass/Vol] 11 mg/dL 7-18 [facility] Thin prep Papanicolaou smear with manual screeningOrdered By: Elías Cabrera on 07-06-2023 Thin prep Papanicolaou smear with manual screening 3.7 g/dL 3.2-5.0 [facility] Thin prep Papanicolaou smear with manual screening 14 U/L 15-37 [facility] Thin prep Papanicolaou smear with manual screening 5 5-15 [facility] Urine blood detectionOrdered By: Elías Cabrera on 07-06-2023 RBC Ql (U) Negative Negative [facility] Urine clarityOrdered By: Henri Cabrera on 07-06-2023 Clarity (U) Clear Clear [facility] Urine color determinationOrd ered By: Elías Cabrera on 07-06-2023 Color (U) Yellow Yellow [facility] Urine glucose detectionOrder ed By: Elías Cabrera on 07-06-2023 Glucose Ql (U) Normal mg/dl Normal [facility] Urine leukocyte esterase det ection by dipstickOrdered By: Elías Cabrera on 07-06-2023 Leukocyte esterase Test strip Ql (U) 500 /ul Negative [facility] Urine pHOrdered By: Elías oliver on 07-06-2023 pH (U) 8.0 [pH] 5.0 - 8.0 [facility] Urine specific gravity measu rementOrdered By: Elías Cabrera on 07-06-2023 Specific gravity (U) [Rel density] 1.015 1.002-1.030 [facility] Urine urobilinogen measureme ntOrdered By: Elías Cabrera on 07-06-2023 Urobilinogen Ql (U) Normal mg/dl Normal [facility] Vital Signs Date Time Vital Sign Value Performing Clinician Faci lity 07-29-2023 11:00-0400 Body temperature 97.7 [degF] Dr. Elías Cabrera Work Phone: [facility] 07-29-2023 11:00-0400 Diastolic blood pressure 69 mm[Hg] Dr. Eílas Cabrera Work Phone: [facility] 07-29-2023 11:00-0400 Heart rate 56 /min Dr. Elías Cabrera Work Phone: [facility] 07-29-2023 11:00-0400 Respiratory rate 16 /min Dr. Elías Cabrera Work Phone: [facility] 07-29-2023 11:00-0400 SaO2% (BldA) [Mass fraction] 99 % Dr. Elías Cabrera Work Phone: [facility] 07-29-2023 11:00-0400 Systolic blood pressure 106 mm[Hg] Dr. Elías Cabrera Work Phone: [facility] 07-29-2023 08:40-0400 Body height 156.[address] Elías Cabrera Work Phone: [facility] 07-29-2023 08:40-0400 Body mass index (BMI) [Ratio] 29 kg/m2 Dr. Elías Cabrera Work Phone: [facility] 07-29-2023 08:40-0400 Body weight [address] Elías Cabrera Work Phone: [facility] 07-20-2023 09:16-0400 Body mass index (BMI) [Ratio] 28.6 kg/m2 Dr. Elías Cabrera Work Phone: [facility] 07-20-2023 09:160400 Body weight 69.[address] Elías Cabrera Work Phone: [facility] Encounters Encounter Date Encounter Type Care Provider Facility Start: 08-29-2024 End: 08-29-[address] Elías Cabrera MD Work Phone: [facility] Work Phone: Start: 08-29-2024 End: 08-29-[address] Elías Cabrera MD -Laboratory Specimen Work Phone: Start: 08-29-2024 End: 08-29-[address] Elías Cabrera MD Work Phone: [facility] Work Phone: Start: 08-29-2024 End: 08-29-[address] Elías Cabrera MD -Outpatient Breast Imaging Work Phone: Start: 08-29-2024 End: 08-29-2024 ambulatory Elías Cabrera Facility:[facility] Start: 08-11-2023 End: 08-11-[address] Elías Cabrera Work Phone: [facility] Work Phone: Start: 08-11-2023 End: 08-11-[address] Elías Cabrera Work Phone: [facility]-Outpatient Breast Imaging Work Phone: Start: 07-29-2023 Non-patient / Non-visit Dr. Jeimy Cabrera Work Phone: [facility] Start: 07-29-2023 End: 07-29-2023 Admission to same day surgery center Dr. Elías Cabrera Work Phone: [facility]-Endoscopy Work Phone: Start: 07-29-2023 End: 07-29-[address] Elías Cabrera Work Phone: [facility] Work Phone: Start: 07-20-2023 Non-patient / Non-visit Dr. Jeimy Cabrera Work Phone: [facility] Work Phone: Start: 07-06-2023 End: 07-06-2023 ambulatory [facility] Work Phone: Start: 07-06-2023 End: 07-06-2023 Patient encounter procedure [facility] [place] Work Phone: Start: 08-02-2022 End: 08-02-2022 ambulatory [facility] Work Phone: Start: 08-02-2022 End: 08-02-2022 Patient encounter procedure [facility]-Outpatient Breast Imaging Start: 06-29-2021 End: 06-29-2021 Patient encounter procedure [facility]-Outpatient Breast Imaging Procedures Date Procedure Procedure Detail Performing Clinician Start: 08-29-2024 Liquid based cervica l cytology screening Dr. Elías Cabrera MD Work Phone: Comment on above: NEGATIVE FOR INTRAEP ITHELIAL LESION OR MALIGNANCY. This liquid based Th inPrep(R) pap test was screened withthe use of an image guided system. Start: 08-29-2024 Screening mammography Abdulaziz Cabrera MD Work Phone: Start: 08-11-2023 Screening mammography Abdulaziz Cabrera Work Phone: Start: 07-29-[address] Elías duarte Work Phone: Start: 08-02-2022 Screening mammography Start: 06-29-2021 Screening mammography Plan of Treatment Date Care Activity Detail Author Start: 07-29-2023 Colonoscopy flx dx w/collj spec when pfrmd DIAGNOSTIC COLONOSCOPY [facility] Start: 07-29-2023 Patient discharge [facility] Colonoscopy [facility] Patient referral [facility] Work Phone: Payers Date Payer Category Payer Self-pay [id number] 2024 Unknown [id number] 2024 Self-pay [id number] Unknown [id number] Unknown [id number] Social History Date Type Detail [facility] Work Phone: Start: 1975 Sex Assigned At Female [facility] Start: 07-29-2023 [facility] Start: 07-29-2023 [facility] Never smoked tobacco (finding) [facility] Goals Date Patient Goal Desired Activity /State Mental Status Date Assessment Result Facility 07-29-2023 Cognitive function Voice/Name [facility] Work Phone: Procedure note 07-29-2023 Note Date & Type Note Facility 07-29-2023 Procedure note [facility] Procedure note 07-29-2023 Note Date & Type Note Facility 07-29-2023 Procedure note [facility] Evaluation note Note Date & Type Note Facility Evaluation note No assessment information availa ble [facility] Work Phone: Evaluation note Note Date & Type Note Facility Evaluation note Diagnosis Onset Date Encounter for screening for malignant neoplasm of colon acute [facility] Work Phone: History and physical note Note Date & Type Note Facility History and physical note Note Date/Time July 29, 2023 9:45am [facility] Medical Records Department [address] [place] [address] History & Physical Exam 07/29/23 0944 MR#: [id number] Acct: [id number] Name: KARINA HOLT Rep #:[id number] : 1975 48 From: Foreign summers MD PCP: Dr. Elías Cabrera MD Status:RE G [facility] Location: [place] [address] HPI - General HPI Narrative KARINA HOLT, is a 48 F who presents for screening colonoscopy. The patient has never had a colonoscopy in the past. She does report a history of polyps inher mother. She has no blood in the stool or abdominal pain. [facility] Medical History (Updated 07/26/23 @ 12:48 by Forest Brooks) Wears glasses Home Medications ascorbate calcium (vitamin C) 500 mg tablet 500 mg PO DAILY 07/20/23 [History Last Taken Unknown] calcium carbonate (Calcium 600) 600 mg PO DAILY 07/20/23 [History Last Taken Unknown] melatonin 3 mg tablet,extended release 3 mg PO QHS 07/20/23 [History Last Taken Unknown] omega-3 fatty acids-fish oil 360 mg-1,200 mg capsule (Fish Oil) 1 cap PO DAILY 07/20/23 [History Last Taken 07/25/23] psyllium husk 0.4 gram capsule (Daily Fiber) 0.4 g PO DAILY 07/20/23 [History Last Taken 07/24/23] turmeric (bulk) 95 % powder (Curcumin) 1 ea miscellaneous BID 07/26/23 [History Last Taken Unknown] Allergy/AdvReac Type Severity Reaction Status Date / Time No Known Allergies Allergy Verified 07/26/23 12:41 Family History (Updated 07/20/23 @ 09:06 by Kristal Moralez) Mother Adenomatous colon polyp Hypertension History of partial colectomy Surgical History Hx of section Hx of tonsillectomy Hx of wisdom tooth extraction Social History (Updated 07/20/23 @ 09:08 by Kristal Moralez) household members: spouse 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 Smoking Status: Never smoker details: Rare wine substance use type: does not use michael/voodoo: Roger Past Medical/Surgical History Planned Operation Planned Operative Procedure/s: COLONOSCOPY Previous Hospitalizations/Surgeries HX Hospitalizations: No Any Problems With Anesthesia: No You/Your Family Experience Fever (Hyperthermia) With Anes: No Cholinesterase deficiency: No Cardiovascular Hx Hypertension: No Respiratory Hx Sleep Apnea: No Hx Respiratory Tract Infection/Cold (presently): No Do You Snore Loudly (louder than talking or can be heard): No Do You Often Feel Tired/ Fatigued/ Sleepy Dring Daytime?: No Has Anyone Observed You Stop Breathing During Sleep?: No Result (for STOP score): Negative Smoking Status: Never smoker Neurological Does patient have nerve stimulator: No Miscellaneous Recent Exposure to Contagious Disease: No Allergies No Known Allergies Allergy (Verified 07/26/23 12:41) Discharge After D/C, Where Do you Plan to Go: Return Home Vital Signs Vital Signs Vital Signs: 07/29/23 08:40 07/29/23 08:40 Temperature 98.0 F Temperature Source Temporal Pulse Rate 62 Respiratory Rate 16 Respiratory Pattern Normal Blood Pressure 111/69 Blood Pressure Mean 83 Blood Pressure Source Monitor Blood Pressure Position Semi-Fowlers Blood Pressure Location Left Arm Pulse Ox 100 Oxygen Delivery Method Room Air Weight Weight: 156 lb 8.451 oz Body Mass Index (BMI) 29.0 Physical Exam Const alert and oriented x3 HEENT normocephalic Eyes PERRL Resp normal respiratory effort and normal air movement Cardio regular rate and regular rhythm GI soft to palpation, non-tender and non-distended Extremity normal to inspection Assessment & Plan Assessment/Plan (1) Encounter for screening for malignant neoplasm of colon: PLAN: I explained endoscopy in detail to the patient. I explained the risks including but not limited to stroke or heart attack with anesthesia, perforationof the GI tract, bleeding, infection. I explained that any of these could necessitate further emergency surgery. The patient understands and all questions were answered sufficiently. The patient wishes to proceed with procedure. Foreign Reardon MD Pager: [facility] [address] [place] [address], [address] [place] [address] Office: Surgery Risks - Colonoscopy Risks Include but are not Limited To: Risks include but are not limited to: Bleeding, perforation requiring further surgery, inability to complete colonoscopy requiring barium enema. 07/29/23 0944 <Electronically signed by Foreign Reardon MD> Cosigner Signature (if applicable): CC: Dr. Foreign Reardon MD; Dr. Elías Cabrera MD~ Signed [facility] Work Phone: Reason for referral (narrative) Note Date & Type Note Facility Reason for referral (narrative) No reason for referral information available [facility] Work Phone: Chief Complaint and Reason for Visit Chief Complaint SCREENING Chief Complaint EORDER Chief Complaint EORDER Amb Documentation Reason for Visit Encounter for screen ing for malignant neoplasm of colon Chief Complaint EORDER Amb Documentation SCREENING Reason for Visit Encounter for screen ing for malignant neoplasm of colon Chief Complaint Admit Date SCREENING August 29, 2024 7:17a m Family History No Family History Records Found Relationship Condition Age at Onset Recorded Date/T gabriela mother Adenomatous polyp of colon Unknown Hypertension Unknown History of partial s urgical removal of colon Unknown Advance Directives No Advanced Directives Records Found Advance Directive Response Recorded Date/ Time Name of Medical Power of Clinical Program Manager ARIELLE HOLT July 26, 2023 12:44pm Living Will Yes July 26, 2023 12:44pm Power of Clinical Program Manager Yes July 25 12:44pm Summary Purpose Additional Source Comments Goals (unrecognized section and content) Goals may be documented in a n alternate sectionGoals may be documented in an alternate sectionGoals may be documented in an alternate sectionGoals may be documented in an alternate sectionGoals may be documented in an alternate section Care Teams (unrecognized sec tion and content) Team Status: Active Member Role Status Dates Dr. Elías Cabrera MD Primary Care Provider Active Team Status: Inactive Member Role Status Dates Dr. Elías Cabrera MD Primary Care Provider Active Start: August 29, 2024 End: August 29, 2024 Dr. Elías Cabrera MD Attending Provider Active Start: August 29, 2024 End: August 29, 2024 Dr. Elías Cabrera MD Referring Provider Active Start: August 29, 2024 End: August 29, 2024 Team Status: Active Member Role Status Dates Dr. Bimal Hernandez MD Family Provider Active Dr. Elías Cabrera MD Primary Care Provider Active Team Status: Inactive Member Role Status Dates Dr. Elías Cabrera MD Primary Care [facility], Attending Provider, Referring Provider Active Team Status: Active Member Role Status Dates Dr. Elías Cabrera MD Primary Care Provider Active Kristal Moralez Attending Provider Active Team Status: Active Member Role Status Dates Dr. Elías Cabrera MD Primary Care Provider, Referr ing Provider Active Dr. Foreign Reardon MD Attending Provider, Other Provider Active Team Status: Inactive Member Role Status Dates Dr. Elías Cabrera MD Primary Care Provider, Referr ing Provider Active Dr. Foreign Reardon MD Attending Provider Active Team Status: Active Member Role Status Dates Dr. Elías Cabrera MD Primary Care Provider Active Start: August 29, 2024 Dr. Elías Cabrera MD Attending Provider Active Start: August 29, 2024 Dr. Elías Cabrera MD Referring Provider Active Start: August 29, 2024 INFORMATION SOURCE (unrecogn ized section and content) DATE CREATED AUTHOR 09/12/2024 [facility] FOR RECORDS PERTAINING TO PATIENTS WHO ARE OR HAVE BEEN ENROLLED IN A CHEMICAL DEPENDENCY/SUBSTANCEABUSE PROGRAM, SOME INFORMATION MAY BE OMITTED. This clinical summary was aggregated from multiple sources. Caution should be exercised in using it in the provision of clinical care. This summary normalizes information from multiple sources, and as a consequence, information in this document may materially change the coding, format and clinical context of patient data. In addition, data may be omitted in some cases. CLINICAL DECISIONS SHOULD BE BASED ON THE PRIMARY CLINICAL RECORDS. [employer] provides no warranty or guarantee of the accuracy or completeness of information in this document.
[2024-09-29 19:13] VITALS: BP 127/81; PULSE 72; RESP 18; TEMP 36.6; O2SAT 99
== END 2024-09-29 19:14 | disposition home or self-care (01) ==
PROVIDERS: Emergency Provider Emergency Medicine; PCP Family Medicine; Visit Provider Emergency Medicine
DX: I83.892 Varicose veins of left lower extremity with other complications (principal); I83.91 Asymptomatic varicose veins of right lower extremity
CPT/HCPCS: 99283; A4216

== ENCOUNTER 2024-10-12 13:42 | Emergency (ER) | payer OTHER, SELFPAY ==
[2024-10-12 13:42] VITALS: BP 133/81; PULSE 95; RESP 18; TEMP 36.8; O2SAT 99
[2024-10-12 14:29] VITALS: BMI 32.8
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
--- OUTSIDE RECORDS SUMMARY | 2024-10-12 14:48 | XMS RPT_ITS | CCD ---
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 Elías Cabrera Primary Care Provider [phone] Kristal Moralez Attending Provider Unavailable Dr. Elías Cabrera Referring Provider Dr. Foreign Reardon Attending Provider Dr. Foreign Reardon Other Provider Dr. Elías Cabrera MD Primary Care Provider [phone] Rick WANG, Dr. Elías Monteiro Attending Provider Dr. Elías Cabrera MD Referring Provider [phone] Dr. Yusuf Mcintyre DO Emergency Provider Elías Cabrera Primary Care Unavailable Elías Cabrera Referring Unavailable Elías Cabrera Attending Unavailable Elías Cabrera Primary Care Unavailable Elías Cabrera Referring Unavailable Elías Cabrera Attending Unavailable Elías Cabrera Primary Care Unavailable Yusuf Mcintyre Attending Unavailable Medications Current Medications Medication Drug Class(es) Dates Sig (Normalized) Sig (Original) calcium ascorbate 500 mg oral tablet (5 sources) Start: 07-20-2023 take 1 tablet by mouth once daily Ascorbate Calcium (Vitamin C) 500 mg tablet Active 500 mg PO DAILY July 20, 2023 12:00am calcium carbonate 1500 mg oral tablet (5 sources) Start: 07-20-2023 take 1 tablet by mouth once daily Calcium Carbonate (Calcium 600) 600 mg calcium (1,500 mg) tablet Active 600 mg PO DAILY July 20, 2023 12:00am docosahexaenoic acid 144 mg / eicosapentaenoic acid 216 mg / vitamin e 2 unt oral capsule (5 sources) Start: 07-20-2023 [place]-3 Fatty Acids-Fish Oil (Fish Oil) 360-1,200 mg capsule Active 1 NMA PO DAILY July 20, 2023 12:00am melatonin 3 mg extended release oral tablet (5 sources) Start: 07-20-2023 take 1 tablet by mouth at bedtime Melatonin 3 mg tablet extended release Active 3 mg PO AT BEDTIME July 20, 2023 12:00am psyllium 400 mg oral capsule (5 sources) Start: 07-20-2023 Psyllium Husk (Daily Fiber) 0.4 gram capsule Active 0.4 g PO DAILY July 20, 2023 12:00am Turmeric extract (5 sources) Start: 07-26-2023 Turmeric (Bulk) (Curcumin) 95 % powder Active 1 NMA MC TWICE A DAY July 26, 2023 12:00am Start: 07-26-2023 Turmeric (Bulk ) (Curcumin) 95 % powder Active 1 EACH MC TWICE A DAY July 26, 2023 12:00am Completed/Discontinued Medications Medication Drug Class(es) Dates Sig (Normalized) Sig (Original) vitamin b12 1 mg oral capsule (5 sources) Vitamin B12 Start: 07-20-2023 End: 07-26-2023 take 1 capsule by mouth once daily Cyanocobalamin (Vitamin B-12) 1,000 mcg capsule Discontinued 1000 ug PO DAILY July 20, 2023 12:00am July 26, 2023 12:42pm Problems Problem Classification Problem Date Documented Da te Episodic/Chronic Other screening for suspected conditions (not mental disorders or infectious disease) (9 sources) Patient encounter status; Translations: [Encounter for screening for malignant neoplasm of colon] Onset: 09-11-2024 07-20-2023 Episodic Varicose veins of lower extremity (3 sources) Varicose veins of lower extremity; Translations: [Asymptomatic varicose veins of bilateral lower extremities] Onset: 10-03-2024 09-29-2024 Episodic Results Test Name Value Interpretation Reference Range Facility Emergency Department Summary on 09-29-2024 Emergency Department Summary [facility] Medical Records Department [address] [place] [address] Emergency Department Summary 09/29/24 MR#: [id number] Acct: [id number] Name: KARINA HOLT Rep #: [id number] : 1975 49 From: Yusuf [place] PCP: Dr. Elías Cabrera MD Status:DEP ER Location: ED HPI History of Present Illness Chief Complaint: Laceration Informant: patient and spouse/S.O. Narrative Narrative: History of varicose veins bleeding left lower leg while shaving. This occurred for 32 hours prior to arrival. No anticoagulants. Patient placed tight dressing on it and came to the emergency department. Has not seen specialist for her varicose veins. No other areas of concern. Prior similar symptoms: No PFSH PFSH Medical History Wears glasses Home Medications ???Medication ???Instructions ???Recorded ???Last Taken ???Type ascorbate calcium (vitamin C) 500 500 mg PO DAILY 07/20/23 Unknown History mg tablet calcium carbonate (Calcium 600) 600 mg PO DAILY 07/20/23 Unknown H istory melatonin 3 mg tablet,extended 3 mg PO QHS 07/20/23 Unknown Histo ry release omega-3 fatty acids-fish oil 360 1 cap PO DAILY 07/20/23 07/25/23 H istory mg-1,200 mg capsule (Fish Oil) psyllium husk 0.4 gram capsule 0.4 g PO DAILY 07/20/23 07/24/23 H istory (Daily Fiber) turmeric (bulk) 95 % powder 1 ea miscellaneous BID 07/26/23 Un known History (Curcumin) Allergy/AdvReac Type Severity Reaction Status Date / Time No Known Allergies Allergy Verified 09/29/24 18:10 Family History Mother Adenomatous colon polyp Hypertension History of partial colectomy Surgical History Hx of section Hx of wisdom tooth extraction Hx of tonsillectomy Social History household members: spouse 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 Smoking Status: Never smoker details: Rare wine substance use type: does not use michael/gnosticist: Roger ROS ROS ED Constitutional Constitutional ED: Denies fever(s) Cardiovascular Cardiovascular: Denies chest pain Respiratory/Chest Respiratory/Chest: Denies cough Gastrointestinal Gastrointestinal: Denies diarrhea or vomiting Musculoskeletal Musculoskeletal: Denies none Integumentary Reports wounds and other Details: Bleeding from varicose vein left leg ; Denies rash Neurologic Neurologic: Denies weakness EXAM Physical Exam Const Vital Signs: 09/29/24 18:10 09/29/24 19:13 Temperature 98.0 F 98 F Temperature Source Temporal Pulse Rate 79 72 Respiratory Rate 16 18 Blood Pressure 132/74 H 127/81 H Blood Pressure Mean 93 96 Pulse Ox 100 99 Oxygen Delivery Method Room Air Positive well nourished and well developed General Appearance ED: well developed HEENT normocephalic and atraumatic Eyes General Eye ED: Yes normal appearance of both eyes Neck full ROM Resp normal respiratory effort and normal air movement Cardio regular rate and regular rhythm GI soft to palpation Extremity full ROM Extremity Narrative: Left lower extremity: Rag tied to the distal left lower leg blood on the medial aspect of the leg. This was removed there was pinpoint clot area over the varicose vein there is no active bleeding. Neuro oriented x3 Skin no rashes or lesions noted and no wounds MDM MDM MDM Narrative Medical decision making narrative: Interventions / MDM: Differential diagnosis: Varicose vein, bleeding Diagnosis considered but do not suspect: N/A My EKG interpretation: N/A Imaging independently reviewed and interpreted by myself: N/A External documents reviewed: N/A Test considered but not ordered:N/A ED course: No active bleeding from injury to varicose vein. Xeroform pressure dressing placed. Discussed leaving dressing for 24 hours, discussed wound care. She will be referred to vascular surgery with history of varicose veins. Return precautions. All questions were answered. Re-evaluation: stable Disposition discussed with patient/family/sign ificant other: Patient significant other Case discussed with consulting clinician: N/A This note was generated with Crosswise dictation software. It may contain incorrect words, spelling, and punctuation that were not noted in checking the note before signing. Discharge Plan Triage Chief Complaint: Laceration ED Provider: Yusuf Mcintyre Dx/Rx/DC Orders Clinical Impression: Varicose veins of both lower extremities, Bleeding from varicose vein Instructions: ED Varicose Veins Prescriptions: No Action omega-3 fatty acids-fish oil [Fish Oil] 360-1,200 mg capsule 1 cap PO DAILY melatonin 3 mg t (more content not included)... Normal [facility] PAP IG HPV HR APTIMAon 09-03 ADEQ Comment Normal . [facility] Comment on above: Order Comment: Speci men Comment: No. of containers..01 ThinPrep Vial Result Comment: Sati sfactory for evaluation. No endocervical component is identified. Performed By: #### L 7400.0377 #### [facility] [address] [place], [address] COMM . Normal . [facility] Comment on above: Order Comment: Speci men Comment: No. of containers..01 ThinPrep Vial Performed By: #### L 7400.0377 #### [facility] [address] [place], [address] COMMENT Comment Normal . [facility] Comment on above: Order Comment: Speci men Comment: No. of containers..01 ThinPrep Vial Result Comment: This liquid based ThinPrep(R) pap test was screened with the use of an image guided system. Performed By: #### L 7400.0377 #### [facility] [address] [place], [address] DIAG Comment Normal . [facility] Comment on above: Order Comment: Speci men Comment: No. of containers..01 ThinPrep Vial Result Comment: NEGA TIVE FOR INTRAEPITHELIAL LESION OR MALIGNANCY. Performed By: #### L [id number] #### [facility] [address] [place], [address] HPV APTIMA, HR Negative Normal Negative [facility] Comment on above: Order Comment: Speci men Comment: No. of containers..01 ThinPrep Vial Result Comment: This nucleic acid amplification test detects fourteen high- risk HPV types (16,18,31,33,35,39,45,51,52,56,58,59,66,68) without differentiation. Performed at: [address] [id number] [employer] Truck Rental Dispatcher: Iqra Garcia MD, Phone: [phone] Performed at: =[address], [place] [id number] [employer] Rental Dispatcher: Iqra Garcia MD, Phone: [phone] Performed By: #### L [id number] #### [facility] [address] [place], [place], [id number] PAPSMR Comment Normal . [facility] Comment on above: Order Comment: Speci men [...] occur. Performed By: #### L [id number] #### [facility] [address] [place], [place], [id number] PERFORM Comment Normal . [facility] Comment on above: Order Comment: Speci men Comment: No. of containers..01 ThinPrep Vial Result Comment: Heike Salazar, Tar Leveler (ASCP) Performed By: #### L [id number] #### [facility] [address] [place], [place], [id number] Breast imaging reportOrdered By: Milagros Thorpe on 08-29-2024 Study report [facility] Imaging Services [address] [place], [place] [id number] SCRN MAMM (CAD)W/ZAHRA BILAT MR#: [id number] Acct: [id number] Name: KARINA HOLT Rep #: [id number] : 1975 F 49 From: Chery Thorpe MD PCP: Dr. Elías Cabrera MD Status: RE G CLI Study:SCRN MAMM (CAD)W/ZAHRA BILAT Date of Exa m: 08/29/24 Exam# [id number] Ordering Dr: Elías Cabrera MD EXAM: SCRN [...] be mailed to the patient. Reading Location: [facility] CC: Dr. Elías Cabrera MD ~ Clerk Checker: Signed [facility] Cervical or vagninal specime n microscopic examination by cytology stain (reported asOrdered By: Elías Cabrera on 08-29-2024 Cytology report Cyto stain Doc (Cvx/Vag) Comment . [facility] Comment on above: The Pap smear is [...] DNA Probe+sig amp Ql (Cvx) Negative Negative [facility] Comment on above: This nucleic acid am plification test detects fourteen high-risk HPV types (16,18,31,33,35,39,45,51,52,56,58,59,66,68)without differentiation.Performed at: [facility] [id number] Director: Iqra Garcia MD, Phone: [phone] at: = - [facility] [address] [place] [id number] Director: Iqra Garcia MD, Phone: [phone] Laboratory - CytologyOrdered By: Elías Cabrera on 08-29-2024 Tar Leveler Cyto stain Nom (Cvx/Vag) [ID] Comment . [facility] Comment on above: Macy root, Tar Leveler (ASCP) Laboratory - Miscellaneous t estsOrdered By: Elías Cabrera on 08-29-2024 Service comment (Unsp spec) [Interp] . . [facility] No Panel InformationOrdered By: Elías Cabrera on 08-29-2024 Pap Smear Specimen Adequacy Comment . [facility] Comment on above: Satisfactory for radha luation. No endocervical component is identified. SCRN MAMM (CAD)W/ZAHRA BILATo n 08-29-2024 SCRN MAMM (CAD)W/ZAHRA BILAT [facility] Imaging Services [address] [place] [address] SCRN MAMM (CAD)W/ZAHRA BILAT MR#: [id number] Acct: [id number] Name: KARINA HOLT Rep #: [id number] : 1975 F 49 From: Milagros Thorpe MD PCP: Dr. Elías Cabrera MD Status: [facility] Study: SCRN MAMM (CAD)W/ZAHRA BILAT Date of Exam: 08/10 05/05 Exam# [id number] Ordering Dr: Elías Cabrera MD EXAM: SCRN [...] be mailed to the patient. Reading Location: [facility] CC: Dr. Elías Cabrera MD Clerk Checker: Signed Normal [facility] - Chemistry and C hemistry - challengeOrdered By: Juan Carlos Davis on 07-29-2023 HCG ( test) Ql (U) Negative [facility] Comment on above: Very dilute urine sp ecimens, as indicated by a low specificgravity, may not contain artist's representative levels of hCG. If is still suspected, a first morning urinespecimen should be collected 48 hours later and tested. Absolute lymphocyte countOrd ered By: Elías Cabrera on 07-06-2023 Lymphocytes Auto (Unsp spec) [#/Vol] 1.97 10*3/uL 0.83-4.51 [facility] Automated lymphocyte count a s percentage of total leukocytesOrdered By: Elías Cabrera on 07-06-2023 Lymphocytes/100 WBC Auto (Unsp spec) 33.8 % 19-41 [facility] Basophil percentageOrdered B y: Elías Cabrera on 07-06-2023 Basophils/100 WBC (Bld) 0.5 % 0-1 [facility] Bilirubin [Mass/Vol] 1.10 mg/dL 0.20-1.00 [facility] Comment on above: For patients on eltr ombopag therapy, use of Dimension [place] TBIL is not recommended. Chloride [Moles/Vol] 107 mmol/L 98-107 [facility] Cholesterol [Mass/Vol] 212 mg/dL <200 [facility] Comment on above: <200 mg/dL Desirable 200-240 mg/dL Borderline >240 mg/dL High Risk Eosinophils/100 WBC (Bld) 1.4 % 0-5 [facility] Glucose [Mass/Vol] 88 mg/dL 74-106 [facility] Hemoglobin (Bld) [Mass/Vol] 12.6 g/dL 12.0-15.0 [facility] Monocytes/100 WBC (Bld) 7.9 % 0-10 [facility] Neutrophils (Bld) [#/Vol] 3.3 10*3/uL 2.0-7.7 [facility] Neutrophils/100 WBC (Bld) 56.2 % 47-70 [facility] Potassium [Moles/Vol] 4.3 mmol/L 3.5-5.1 [facility] Protein [Mass/Vol] 7.4 g/dL 6.4-8.2 [facility] Sodium [Moles/Vol] 140 mmol/L 136-145 [facility] Triglyceride [Mass/Vol] 82 mg/dL <199 [facility] Comment on above: The drugs N-Acetylcy steine and Metamizole may falsely depress this assay.Serum Triglycerides Reference Interval Normal <150 mg/dL Borderline high 150 - 199 mg/dL High 200 - 499 mg/dL Very High > or = 500 mg/dL WBC (Bld) [#/Vol] 5.8 10*3/uL 4.4-11.0 [facility] Bilirubin Test strip Ql (U)O rdered By: Elías Cabrera on 07-06-2023 Bilirubin Ql (U) Negative Negative [facility] Determination of erythrocyte mean corpuscular volume (MCV)Ordered By: Elías Cabrera on 07-06-2023 MCV (RBC) [Entitic vol] 90.9 fL 81-99 [facility] Erythrocyte distribution wid th ratioOrdered By: Elías Cabrera on 07-06-2023 Erythrocyte distribution width (RBC) [Ratio] 14.7 % 11.6-14.6 [facility] Erythrocyte distribution wid th standard deviationOrdered By: Elías Cabrera on 07-06-2023 Erythrocyte distribution width (RBC) [Entitic vol] 49.2 fL 35.1-43.9 [facility] Hematocrit Auto (Bld) [Volum e fraction]Ordered By: Elías Cabrera on 07-06-2023 Hematocrit (Bld) [Volume fraction] 38.9 % 37-47 [facility] Immature granulocytes/100 WB C Auto (Bld)Ordered By: Elías Cabrera on 07-06-2023 Immature granulocytes/100 WBC (Bld) 0.200 % 0.0-0.9 [facility] Comment on above: IG% - Immature Granu locytes (promyelocytes, myelocytes and metamyelocytes) > 1% indicates that a LEFT SHIFT is Present. Ketones Test strip Ql (U)Ord ered By: Elías Cabrera on 07-06-2023 Ketones Ql (U) Negative Negative [facility] - Chemistry and C hemistry - challengeOrdered By: Elías Cabrera on 07-06-2023 Albumin/Globulin [Mass ratio] 1.0 {ratio} 0.9-2.4 [facility] ALP [Catalytic activity/Vol] 61 U/L 45-117 [facility] ALT [Catalytic activity/Vol] 17 U/L 13-56 [facility] Cholesterol in HDL [Mass/Vol] 78 mg/dL >40 [facility] Comment on above: The drugs N-Acetylcy steine and Metamizole may falsely depress this assay. Reference Range HDL <40 mg/dL Low HDL Cholesterol HDL >or= 60 mg/dL High HDL Cholesterol Cholesterol in LDL [Mass/Vol] 118 mg/dL 0-130 [facility] CO2 [Moles/Vol] 28.0 mmol/L 21.0-32.0 [facility] Globulin (S) [Mass/Vol] 3.7 g/dL 2.2-4.2 [facility] Urea nitrogen/Creatinine [Mass ratio] 11.8 mg/mg 10-20 [facility] - Hematology and Cell countsOrdered By: Elías Cabrera on 07-06-2023 MCH (RBC) [Entitic mass] 29.4 pg 27.0-32.0 [facility] MCHC (RBC) [Mass/Vol] 32.4 g/dL 32-36 [facility] Nucleated RBC/100 WBC (Bld) [Ratio] 0 % 0-5 [facility] Platelet mean volume (Bld) [Entitic vol] 10.5 fL 6.2-12.0 [facility] Platelets (Bld) [#/Vol] 277 10*3/uL 150-450 [facility] Nitrite Test strip Ql (U)Ord ered By: Elías Cabrera on 07-06-2023 Nitrite Ql (U) Negative Negative [facility] No Panel InformationOrdered By: Elías Cabrera on 07-06-2023 Estimated GFR (MDRD) Amer 82 mL/min >60 [facility] Comment on above: GFR Calc Estimated GFR (MDRD) Non-Af Amer 68 mL/min >60 [facility] Comment on above: Non- GFR Calc VLDL Cholesterol 16 mg/dL 5-40 [facility] Protein Test strip Ql (U)Ord ered By: Elías Cabrera on 07-06-2023 Protein Ql (U) Negative Negative [facility] RBC Auto (Bld) [#/Vol]Ordere d By: Elías Cabrera on 07-06-2023 RBC (Bld) [#/Vol] 4.28 10*6/uL 4.2-5.4 [facility] Serum or plasma calcium nicolas urement (mass/volume)Ordered By: Elías Cabrera on 07-06-2023 Calcium [Mass/Vol] 8.8 mg/dL 8.5-10.1 [facility] Serum or plasma creatinine m easurement (mass/volume)Ordered By: Elías Cabrera on 07-06-2023 Creatinine [Mass/Vol] 0.93 mg/dL 0.55-1.02 [facility] Comment on above: The validity of the calculated GFR & GFRAA in patients over 70 years has not been determined. Clinical correlation is essential. Serum or plasma thyroid stim ulating hormone (TSH) measurement (units/volume)Ordered By: Elías Cabrera on 07-06-2023 TSH Qn 1.09 uIU/mL 0.358-3.74 [facility] Serum or plasma urea nitroge n measurement (mass/volume)Ordered By: Elías Cabrera on 07-06-2023 Urea nitrogen [Mass/Vol] 11 mg/dL 7-18 [facility] Thin prep Papanicolaou smear with manual screeningOrdered By: Elías Cabrera on 07-06-2023 Thin prep Papanicolaou smear with manual screening 3.7 g/dL 3.2-5.0 [facility] Thin prep Papanicolaou smear with manual screening 14 U/L 15-37 [facility] Thin prep Papanicolaou smear with manual screening 5 5-15 [facility] Urine blood detectionOrdered By: Elías Cabrera on 07-06-2023 RBC Ql (U) Negative Negative [facility] Urine clarityOrdered By: Henri Cabrera on 07-06-2023 Clarity (U) Clear Clear [facility] Urine color determinationOrd ered By: Elías Cabrera on 07-06-2023 Color (U) Yellow Yellow [facility] Urine glucose detectionOrder ed By: Elías Cabrera on 07-06-2023 Glucose Ql (U) Normal mg/dl Normal [facility] Urine leukocyte esterase det ection by dipstickOrdered By: Elías Cabrera on 07-06-2023 Leukocyte esterase Test strip Ql (U) 500 /ul Negative [facility] Urine pHOrdered By: Elías oliver on 07-06-2023 pH (U) 8.0 [pH] 5.0 - 8.0 [facility] Urine specific gravity measu rementOrdered By: Elías Cabrera on 07-06-2023 Specific gravity (U) [Rel density] 1.015 1.002-1.030 [facility] Urine urobilinogen measureme ntOrdered By: Elías Cabrera on 07-06-2023 Urobilinogen Ql (U) Normal mg/dl Normal [facility] Vital Signs Date Time Vital Sign Value Performing Clinician Faci lity 09-29-2024 19:13-0400 Body temperature 98 [degF] Dr. Elías Cabrera MD Work Phone: [facility] 09-29-2024 19:13-0400 Diastolic blood pressure 81 mm[Hg] Dr. Elías Cabrera MD Work Phone: [facility] 09-29-2024 19:13-0400 Heart rate 72 /min Dr. Elías Cabrera MD Work Phone: [facility] 09-29-2024 19:13-0400 Respiratory rate 18 /min Dr. Elías Cabrera MD Work Phone: [facility] 09-29-2024 19:13-0400 SaO2% (BldA) [Mass fraction] 99 % Dr. Elías Cabrera MD Work Phone: [facility] 09-29-2024 19:13-0400 Systolic blood pressure 127 mm[Hg] Dr. Elías Cabrera MD Work Phone: [facility] 09-29-2024 18:10-0400 Body height 154.[address] Elías Cabrera MD Work Phone: [facility] 09-29-2024 18:10-0400 Body mass index (BMI) [Ratio] 32.1 kg/m2 Dr. Elías Cabrera MD Work Phone: [facility] 09-29-2024 18:10-0400 Body weight 77.[address] Elías Cabrera MD Work Phone: [phone] [place] [address] 07-29-2023 11:00-0400 Body temperature 97.7 [degF] Dr. Elías Cabrera Work Phone: [facility] 07-29-2023 11:00-0400 Diastolic blood pressure 69 mm[Hg] Dr. Elías Cabrera Work Phone: [facility] 07-29-2023 11:00-0400 Heart rate 56 /min Dr. Elías Cabrera Work Phone: [facility] 07-29-2023 11:00-0400 Respiratory rate 16 /min Dr. Elías Cabrera Work Phone: [facility] 07-29-2023 11:00-0400 SaO2% (BldA) [Mass fraction] 99 % Dr. Elías Cabrera Work Phone: [facility] 07-29-2023 11:00-0400 Systolic blood pressure 106 mm[Hg] Dr. Elías Cabrera Work Phone: [facility] 07-29-2023 08:40-0400 Body height 156.[address] Elías Cabrera Work Phone: [facility] 07-29-2023 08:40-0400 Body mass index (BMI) [Ratio] 29 kg/m2 Dr. Elías Cabrera Work Phone: [facility] 07-29-2023 08:40-0400 Body weight [address] Elías Cabrera Work Phone: [facility] 07-20-2023 09:16-0400 Body mass index (BMI) [Ratio] 28.6 kg/m2 Dr. Elías Cabrera Work Phone: [facility] 07-20-2023 09:16-0400 Body weight 69.[address] Elías Cabrera Work Phone: [facility] Encounters Encounter Date Encounter Type Care Provider Facility Start: 09-29-2024 End: 09-29-2024 Emergency department patient visit Dr. Elías Cabrera MD Work Phone: -Emergency Department Work Phone: Start: 08-29-2024 End: 08-29-[address] Elías Cabrera MD Work Phone: [facility] Work Phone: Start: 08-29-2024 End: 08-29-[address] Elías Cabrera MD -Laboratory Specimen Work Phone: Start: 08-29-2024 End: 08-29-[address] Elías Cabrera MD Work Phone: [facility] Work Phone: Start: 08-29-2024 End: 08-29-[address] Elías Cabrera MD -Outpatient Breast Imaging Work Phone: Start: 08-29-2024 End: 08-29-2024 ambulatory Elías Cabrera Facility:[facility] Start: 08-11-2023 End: 08-11-[address] Elías Cabrera Work Phone: [facility] Work Phone: Start: 08-11-2023 End: 08-11-[address] Elías Cabrera Work Phone: [facility]-Outpatient Breast Imaging Work Phone: Start: 07-29-2023 Non-patient / Non-visit Dr. Jeimy Cabrera Work Phone: [facility] Start: 07-29-2023 End: 07-29-2023 Admission to same day surgery center Dr. Elías Cabrera Work Phone: [facility]-Endoscopy Work Phone: Start: 07-29-2023 End: 07-29-[address] Elías Cabrera Work Phone: [facility] Work Phone: Start: 07-20-2023 Non-patient / Non-visit Dr. Jeimy Cabrera Work Phone: [facility] Work Phone: Start: 07-06-2023 End: 07-06-2023 ambulatory [facility] Work Phone: Start: 07-06-2023 End: 07-06-2023 Patient encounter procedure [facility] Work Phone: Start: 08-02-2022 End: 08-02-2022 ambulatory [facility] Work Phone: Start: 08-02-2022 End: 08-02-2022 Patient encounter procedure [facility]-Outpatient Breast Imaging Start: 06-29-2021 End: 06-29-2021 Patient encounter procedure [facility]-Outpatient [facility] Procedures Date Procedure Procedure Detail [...] Treatment Date Care Activity Detail Author Start: 09-29-2024 [facility] Start: 07-29-2023 Colonoscopy flx dx w/collj spec when pfrmd DIAGNOSTIC COLONOSCOPY [facility] Start: 07-29-2023 Patient discharge [facility] Colonoscopy [facility] Patient Education ED Varicose Veins [facility] Work Phone: Patient referral [facility] Work Phone: Payers Date Payer Category Payer Self-pay [id number] 2024 Unknown [id number] 2024 Self-pay [id number] Unknown [id number] Unknown [id number] Unknown [id number] Social History Date Type Detail Facility Tobacco smoking stat NHIS Unknown if ever smoked [facility] Work Phone: Start: 1975 Sex Assigned At Female [facility]: [facility]23 [facility] Start: 07-29-2023 End: 09-29-2024 Tobacco smoking status NHIS Never smoked tobacco (finding) [facility] Goals Date Patient Goal Desired Activity /State Mental Status Date Assessment Result Facility 07-29-2023 Cognitive function Voice/Name [facility] Work Phone: Procedure note 07-29-2023 Note Date & Type Note Facility 07-29-2023 Procedure note [facility] Procedure note 07-29-2023 Note Date & Type Note Facility 07-29-2023 Procedure note [facility] Evaluation note Note Date & Type Note Facility Evaluation note No assessment information availa ble [facility] Work Phone: Evaluation note Note Date & Type Note Facility Evaluation note Diagnosis Onset Date Encounter for screening for malignant neoplasm of colon acute [facility] Work Phone: History and physical note Note Date & Type Note Facility History and physical note Note Date/Time July 29, 2023 9:45am [facility] Medical Records Department [address] [place] [address] History & Physical Exam 07/29/23 0944 MR#: [id number] Acct: [id number] Name: KARINA HOLT Rep #:[id number] : 1975 48 From: Foreign summers MD PCP: Dr. Elías Cabrera MD Status:[facility] Location: [place] [address] HPI - General HPI Narrative KARINA HOLT, is a 48 F who presents for screening colonoscopy. The patient has never had a colonoscopy in the past. She does report a history of polyps inher mother. She has no blood in the stool or abdominal pain. [facility] Medical History (Updated 07/26/23 @ 12:48 by [...] wine substance use type: does not use michael/gnosticist: [facility] Past Medical/Surgical History Planned Operation Planned Operative [...] proceed with procedure. Foreign Reardon MD Pager: [facility] [address] [place] [address], [address] [place] [address] Office: Surgery Risks - Colonoscopy Risks Include but are not Limited To: Risks include but are not limited to: Bleeding, perforation requiring further surgery, inability to complete colonoscopy requiring barium enema. 07/29/23 0944 <Electronically signed by Foreign Reardon MD> Cosigner Signature (if applicable): CC: Dr. Foreign Reardon MD; Dr. Elías Cabrera MD~ Signed [facility] Work Phone: Hospital Discharge instructions Note Date & Type Note Facility Hospital Discharge instructions Additional Instructions No active bleeding from your varicose veins after shaving. Leave dressing on for 24 hours, daily dressing changes after cleaning with warm soap and water. Follow-up with Dr. Bearden. [facility] Work Phone: Reason for referral (narrative) Note Date & Type Note Facility Reason for referral (narrative) No reason for referral information available [facility] Work Phone: Chief Complaint and Reason for Visit Chief Complaint SCREENING Chief Complaint EORDER Chief Complaint EORDER Amb Documentation Reason for Visit Encounter for screen ing for malignant neoplasm of colon Chief Complaint EORDER Amb Documentation SCREENING Reason for Visit Encounter for screen ing for malignant neoplasm of colon Chief Complaint Admit Date SCREENING August 29, 2024 7:17a m Chief Complaint Admit Date SCREENING August 29, 2024 7:17a m WOUND September 29, 2024 6:09 pm Family History No Family History Records Found Relationship Condition Age at Onset Recorded Date/T gabriela mother Adenomatous polyp of colon Unknown Hypertension Unknown History of partial s urgical removal of colon Unknown Advance Directives No Advanced Directives Records Found Advance Directive Response Recorded Date/ Time Name of Medical Power of Rack Worker ARIELLE HOLT July 26, 2023 12:44pm Living Will Yes July 26, 2023 12:44pm Power of Rack Worker Yes July 25 12:44pm Advance Directive Response Recorded Date/ Time Do you have a Healthcare Power of Rack Worker? No September 29, 2024 6:37pm Summary Purpose Additional Source Comments Goals (unrecognized [...] Dates Dr. Elías Cabrera MD Primary Care Pr ovider, Attending Provider, Referring Provider Active Team Status: Active Member Role Status Dates Dr. Elías Cabrera MD Primary Care Provider Active Kristal Kirt Attending Provider Active Team Status: Active Member [...] Referring Provider Active Start: August 29, 2024 Team Status: Inactive Member Role Status Dates Dr. Elías Cabrera MD Primary Care Provider Active Start: September 29, 2024 End: September 29, 2024 Dr. Yusuf Mcintyre DO Emergency Provider Active Start : September 29, 2024 End: September 29, 2024 INFORMATION SOURCE (unrecogn ized section and content) DATE CREATED AUTHOR 10/04/2024 [facility] FOR RECORDS PERTAINING TO PATIENTS [...] BE BASED ON THE PRIMARY CLINICAL RECORDS. [facility] [employer] [facility] provides no warranty or guarantee of the accuracy or completeness of information in this document.
[2024-10-12] MEDS: Lidocaine 1% (20 ml mdv) 20 ML Vial INFILT (14:59)
[2024-10-12 15:47] VITALS: BP 124/78; PULSE 73; RESP 15; TEMP 36.4; O2SAT 98
== END 2024-10-12 16:16 | disposition home or self-care (01) ==
PROVIDERS: Emergency Provider Emergency Medicine; PCP Family Medicine; Visit Provider Emergency Medicine
DX: S81.812A Laceration without foreign body, left lower leg, initial encounter (principal); R03.0 Elevated blood-pressure reading, without diagnosis of hypertension; Z23 Encounter for immunization; W26.8XXA Contact with other sharp object(s), not elsewhere classified, initial encounter
CPT/HCPCS: 12002; 90715; 99283